=== PATIENT | female | born 1985 | race Two or more races ===

== ENCOUNTER 2021-04-25 00:04 | Emergency (ER) | payer MEDICAID ==
[~2021-04-25] VITALS: Ht 165.1 cm; Wt 97.1 kg
[2021-04-25 03:46] VITALS: BP 121/79
[2021-04-25] MEDS ORDERED: cefTRIAXone SOD 1,000 MG VL IM ONE (04:00)
[2021-04-25] MEDS ORDERED: KETOROLAC TROMETH 60MG/2ML VIAL IM ONE (04:00)
[2021-04-25] MEDS ORDERED: LIDOCAINE 1% HCL (LOCAL ANESTH.) INJ 20ML MDV ID ONE (04:15)
== END 2021-04-25 05:42 | disposition home or self-care (01) ==
LOC: EDBD 00:10 → ER 00:10
DX: L02.211 Cutaneous abscess of abdominal wall (principal)
CPT/HCPCS: 10060; 96372; 99284; C1887; J0696; J1885; J2001

== ENCOUNTER 2023-01-08 11:42 | Emergency (ER) | payer MEDICAID ==
[~2023-01-08] VITALS: Ht 167.6 cm; Wt 96.3 kg
[2023-01-08 12:12] LABS: Basophils # (auto) 0.1 10 ^3/uL (0-0.2); Basophils % (auto) 0.8 % (0.0-2.0); Eosinophils # (auto) 0.2 10 ^3/uL (0-0.8); Eosinophils % (auto) 1.6 % (0.0-7.0); Hematocrit 40.9 % (36.0-46.0); Hemoglobin 14.3 g/dL (12.2-16.2); Lymphocytes % (auto) 8.4 % (10.0-50.0); Mean Corpuscular Hemoglobin 31.5 pg (28.0-32.0); Mean Corpuscular Volume 90.1 fL (80.0-100.0); Monocytes # (auto) 0.3 10 ^3/uL (0-1.3); Monocytes % (auto) 2.8 % (0.0-12.0); Neutrophils % (auto) 86.4 % (37.0-80.0); Red Blood Cells 4.54 10^6/uL (4.0-5.20); White Blood Cell 11.6 10^3/uL (4.4-10.8)
[2023-01-08 12:21] LABS: Urine Bacteria FEW /hpf (None Seen); Urine Blood TRACE /uL (Negative); Urine Mucus FEW (None Seen); Urine Specific Gravity 1.023 (1.001-1.035); Urine WBC 3 /hpf (0 - 5)
[2023-01-08 12:30] LABS: Albumin 3.4 g/dL (3.4-5.0); BUN/Creatinine Ratio 26.1; Calcium 8.6 mg/dL (8.5-10.1)
[2023-01-08 12:32] LABS: Bilirubin, Total 0.6 mg/dL (0.2-1.0); Total Protein 7.4 g/dL (6.4-8.2)
[2023-01-08] MEDS ORDERED: IOHEXOL 300 MG/ML 100ML BOTTLE IJ ONE (12:46)
[2023-01-08] MEDS ORDERED: SUCRALFATE 1 GM TAB PO ONE (14:45)
[2023-01-08] MEDS ORDERED: PANTOPRAZOLE 40 MG TAB PO ONE (14:45)
[2023-01-08] MEDS ORDERED: MAALOX PLUS or MAALOX 30 ML PO ONE (14:45)
[2023-01-08] MEDS ORDERED: SUCR1TAB22 OR (15:13)
[2023-01-08 15:29] VITALS: BP 118/81
[2023-01-09] MEDS ORDERED: NITR-87 PO (01:17)
== END 2023-01-08 15:31 | disposition home or self-care (01) ==
LOC: ER 11:42
DX: R10.13 Epigastric pain (principal); N39.0 Urinary tract infection, site not specified; Z79.899 Other long term (current) drug therapy
CPT/HCPCS: 36415; 74177; 80053; 81001; 81025; 82150; 83690; 84484; 85025; 99285; Q9967

== ENCOUNTER 2023-10-23 14:32 | Emergency (ER) | payer MEDICAID ==
[~2023-10-23] VITALS: Ht 157.5 cm; Wt 98.5 kg
[~2023-10-23 14:32] MED LIST: NITR-87 PO; SUCR1TAB22 OR
[2023-10-23 15:25] VITALS: BP 116/73; PULSE 80; RESP 16; TEMP 97.9; O2SAT 96
[2023-10-23 16:05] LABS: Urine Bacteria NONE SEEN /hpf (None Seen); Urine Blood TRACE /uL (Negative); Urine Clarity HAZY (Clear); Urine Color Colorless (Yellow); Urine Mucus FEW (None Seen); Urine Protein, UAD TRACE (Negative); Urine Specific Gravity 1.017 (1.001-1.035); Urine Urobilinogen Normal (Negative); Urine WBC 1098 /hpf (0 - 5); Urine pH 5.5 (5.0-8.0)
[2023-10-23] MEDS ORDERED: cefTRIAXone SOD 1,000 MG VL IM ONE (16:30)
[2023-10-23] MEDS ORDERED: PHENAZOPYRIDINE HCL 100 MG TAB PO ONE (16:30)
[2023-10-23] MEDS ORDERED: LIDOCAINE 1% HCL (LOCAL ANESTH.) INJ 20ML MDV IJ ONE (16:45)
[2023-10-23] MEDS ORDERED: PHEN-922 PO ×3 (17:08→17:10)
[2023-10-23] MEDS ORDERED: NITR-87 PO ×3 (17:08→17:10)
[2023-10-23 18:47] LABS: Basophils # (auto) 0.1 10 ^3/uL (0-0.2); Basophils % (auto) 0.6 % (0.0-2.0); Eosinophils # (auto) 0.1 10 ^3/uL (0-0.8); Eosinophils % (auto) 1.2 % (0.0-7.0); Hemoglobin 13.2 g/dL (12.2-16.2); Lymphocytes # (auto) 2.1 10 ^3/uL (0.4-5.4); Lymphocytes % (auto) 17.2 % (10.0-50.0); Mean Corpuscular Hemoglobin 30.4 pg (28.0-32.0); Mean Corpuscular Hgb Conc. 32.9 g/dL (32.0-36.0); Mean Corpuscular Volume 92.4 fL (80.0-100.0); Monocytes # (auto) 0.5 10 ^3/uL (0-1.3); Monocytes % (auto) 4.2 % (0.0-12.0); Neutrophils # (auto) 9.5 10 ^3/uL (1.6-8.6); Neutrophils % (auto) 76.8 % (37.0-80.0); Red Blood Cells 4.32 10^6/uL (4.0-5.20); Red Cell Distribution Width 13.7 % (11.8-14.3); White Blood Cell 12.4 10^3/uL (4.4-10.8)
== END 2023-10-23 17:24 | disposition home or self-care (01) ==
LOC: ER 14:32
DX: O23.41 Unspecified infection of urinary tract in pregnancy, first trimester (principal); R10.2 Pelvic and perineal pain; Z3A.01 Less than 8 weeks gestation of pregnancy; Z79.899 Other long term (current) drug therapy
CPT/HCPCS: 36415; 76801; 81001; 81025; 84702; 85025; 96372; 99285; J0696; J2001